=== PATIENT | male | born 2000 ===

== ENCOUNTER 2024-09-26 22:25 | Emergency (ER) | payer SELFPAY ==
[2024-09-26] MEDS ORDERED: Sodium Chloride 0.9% 10 ML Syringe FLUSH PRN (23:23)
[2024-09-26] MEDS: cefTRIAXone 1 GM Vial IVPUSH ONE (23:35)
== END 2024-09-27 00:05 | disposition home or self-care (01) ==
LOC: JD.ED 22:25
DX: L03.115 Cellulitis of right lower limb (principal); Z91.010 Allergy to peanuts
CPT/HCPCS: 96374; 99283; J0696